=== PATIENT | male | born 1985 | race Hispanic/Latino ===

== ENCOUNTER 2016-11-09 17:21 | Emergency (ER) | payer MEDICAID ==
--- NOTE | 2016-11-09 18:44 | Emergency Department Report ---
Chief Complaint: Seizure Stated Complaint: MED REACTION Time Seen by Provider: 11/09/16 18:27 - HPI History of Present Illness: PT states he has a hx of sz. PT states his teacher called EMS because he has a sz today. PT states he was told he was dehydrated from drinking too much Coke or Water. pt denies ETOH - ROS Review of Systems: - cook + sz - Exam Vital Signs: Vital Signs 11/09/16 18:18 Temperature 98.7 F Pulse Rate 96 H Respiratory 18 Rate Blood Pressure 132/77 O2 Sat by Pulse 100 Oximetry Physical Exam: pt is alert and appropriate. pt is slow to respond to questions. no focal weakness noted MSE screening note: Focused history and physical exam performed. Due to findings the following was ordered: labs ED Disposition for MSE Condition: Stable
[2016-11-09 18:48] LABS: Basophils % (Auto) 0.3 % (0.0-1.8); Eosinophils % (Auto) 0.1 % (0.0-4.3); Hematocrit 42.1 % (35.5-45.6); Mean Corpuscular HGB Conc 33 % (32-34); Mean Corpuscular Hemoglobin 28 pg (28-32); Mean Corpuscular Volume 83 fl (84-94); Platelet Count 214 K/mm3 (140-440); Red Blood Count 5.08 M/mm3 (3.65-5.03); Red Cell Distribution Width 13.7 % (13.2-15.2)
[2016-11-09 18:54] LABS: Urine Drugs of Abuse Note Disclamer
[2016-11-09 19:06] LABS: Bilirubin,Urine NEG (Negative); Blood,Urine NEG (Negative); Ketones,Urine NEG (Negative); Leukocyte Esterase,Urine NEG (Negative); Nitrite,Urine NEG (Negative); RBC,Urine < 1.0 /HPF (0.0-6.0); WBC,Urine < 1.0 /HPF (0.0-6.0)
[2016-11-09 19:09] LABS: Magnesium 2.1 mg/dL (1.7-2.3)
[2016-11-09 20:20] LABS: Alanine Aminotransferase 8 units/L (7-56); Albumin 4.6 g/dL (3.9-5); Albumin/Globulin Ratio 1.2 %; Alkaline Phosphatase 57 units/L (35-129); Anion Gap 20 mmol/L; Blood Urea Nitrogen 9 mg/dL (9-20); Calcium 9.4 mg/dL (8.4-10.2); Carbon Dioxide 26 mmol/L (22-30); Chloride 101.2 mmol/L (98-107); Glucose 105 mg/dL (75-100); Potassium 4.2 mmol/L (3.6-5.0); Sodium 143 mmol/L (137-145); Total Protein 8.6 g/dL (6.3-8.2)
[2016-11-09 22:55] VITALS: BP 124/82
[2016-11-09] MEDS ORDERED: NACL 0.9% 1000 ML 1,000 ML IV ONE (23:37)
--- NOTE | 2016-11-09 23:40 | Emergency Department Report ---
HPI - General Chief Complaint: Seizure Time Seen by Provider: 11/09/16 18:27 - HPI HPI: This is a 30-year-old male who presents to the emergency department by EMS from his "class" with the complaint of a possible seizure. Patient says that his eyes rolled in the back of his head and he passed out. This was witnessed by other people in the class. This class is a daytime education and/ or treatment Center for psychiatric illness in the patient attends therefore his history of schizophrenia. He takes Geodon. The patient does have a history of seizures and takes Depakote and says he is compliant with this medication. His primary care doctor is a Dr. Little. He said the last time he had a seizure was about 2 months ago. Currently he feels improved. Unknown if he hit his head or the amount of time that he was unconscious. ED Past Medical Hx - Past Medical History Hx Seizures: Yes Hx Psychiatric Treatment: Yes (depression) - Surgical History Past Surgical History?: No - Social History Smoking Status: Never Smoker Substance Use Type: None - Medications Home Medications: Home Medications Medication Instructions Recorded Confirmed Last Taken Type Diphenhydramine HCl [Ormir] 50 mg PO BID #60 capsule 10/02/13 02/05/15 02/04/15 Rx Ziprasidone HCl [Geodon] 80 mg PO BID #60 capsule 10/02/13 02/05/15 02/04/15 Rx Divalproex Sodium [Divalproex 1,500 mg PO QHS 02/05/15 02/05/15 02/04/15 History Sodium ER] ED Review of Systems ROS: Stated complaint: MED REACTION Other details as noted in HPI Comment: All other systems reviewed and negative Constitutional: denies: chills, fever Eyes: denies: eye pain, eye discharge, vision change ENT: denies: ear pain, throat pain Respiratory: denies: cough, shortness of breath, wheezing Cardiovascular: denies: chest pain, palpitations Gastrointestinal: denies: abdominal pain, nausea, diarrhea Genitourinary: denies: urgency, dysuria Musculoskeletal: denies: back pain, joint swelling, arthralgia Skin: denies: rash, lesions Neurological: other (seizure). denies: headache Physical Exam - Physical Exam Vital Signs: Vital Signs 11/09/16 11/09/16 18:18 22:54 Temperature 98.7 F 98.9 F Pulse Rate 96 H 78 Respiratory 18 18 Rate Blood Pressure 132/77 Blood Pressure 124/82 [Right] O2 Sat by Pulse 100 97 Oximetry Physical Exam: GENERAL: The patient is well-developed well-nourished. HEENT: Normocephalic. Atraumatic. Extraocular motions are intact. Patient has moist mucous membranes. Pupils equal reactive to light bilaterally. No nystagmus. NECK: Supple. Trachea is midline. CHEST/LUNGS: Clear to auscultation. There is no respiratory distress noted. HEART/CARDIOVASCULAR: Regular. There is no tachycardia. There is no gallop rub or murmur. ABDOMEN: Abdomen is soft, nontender. Patient has normal bowel sounds. There is no abdominal distention. SKIN: Skin is warm and dry. NEURO: The patient is awake, alert, and oriented. The patient is cooperative. The patient has no focal neurologic deficits. The patient has normal speech. Cranial nerves II through XII grossly intact. No dysmetria. Normal gait. MUSCULOSKELETAL: There is no tenderness or deformity. There is no limitation range of motion. There is no evidence of acute injury. ED Course Vital Signs 11/09/16 11/09/16 18:18 22:54 Temperature 98.7 F 98.9 F Pulse Rate 96 H 78 Respiratory 18 18 Rate Blood Pressure 132/77 Blood Pressure 124/82 [Right] O2 Sat by Pulse 100 97 Oximetry ED Medical Decision Making - Lab Data Result diagrams: 11/09/16 18:36 11/09/16 18:36 - EKG Data -: EKG Interpreted by [facility] EKG shows normal: sinus rhythm, axis, intervals, QRS complexes, ST-T waves Rate: normal - EKG Data When compared to previous EKG there are: previous EKG unavailable Interpretation: normal EKG - Radiology Data Radiology results: report reviewed CT of the head does not show any acute process including no hemorrhage, mass, shift, diffuse edema or skull fracture. - Medical Decision Making 30-year-old male presents the emergency department after a syncopal episode versus seizure while at his psychiatric class. Since the patient has been in the emergency department he has been awake, alert and lucid. He has been in the emergency department for more multiple hours and reevaluated multiple times and there has been no further seizure-like activity or any episodes of passing out. CT of the head does not show any bleed, shift, ischemic changes or any acute process. EKG is normal without ischemia, dysrhythmia or ST elevation [place]. His labs are mostly unremarkable and do not show any etiology of his previous symptoms. For this reason the patient appears safe for discharge home at this time. He is basically therapeutic on his Depakote, just a few points below the normal range. He was given a referral for neurology and encouraged follow-up with his primary care physician. He will return to the ER for any worsening of symptoms or any acute distress. - Differential Diagnosis seizure, orthostatic hypotension, vasovagal, CVA Critical Care Time: No Critical care attestation.: If time is entered above; I have spent that time in minutes in the direct care of this critically ill patient, excluding procedure time. ED Disposition Clinical Impression: Seizure Disposition: DC-01 TO HOME OR SELFCARE Is pt being admited?: No Condition: Stable Instructions: Epilepsy (ED) Additional Instructions: Please follow-up with your primary care doctor in the next few days. I have given you a referral for a local neurologist, Dr. Pimentel, to follow up regarding your seizures. Continue taking her seizure medication. Return to the emergency department with any worsening of your symptoms or any acute distress. Referrals: PRIMARY CARE, [Primary Care Provider] - GRABIEL GIPSON MD [Staff Physician] - 3-5 Days Time of Disposition: 03:58
--- NOTE | 2016-11-10 02:03 | Cat Scan Report ---
FINAL REPORT PROCEDURE: CT HEAD/BRAIN WO CON TECHNIQUE: Computerized tomography of the head was performed without contrast material. HISTORY: Seizure COMPARISON: No prior studies are available for comparison. FINDINGS: Skull and scalp: Normal. Paranasal sinuses: Normal. Ventricles and subarachnoid spaces: Normal. Cerebrum: No evidence of hemorrhage, acute infarction or mass . Cerebellum and brainstem: No evidence of hemorrhage, acute infarction or mass. Vasculature: Normal. Comments: None. IMPRESSION: Normal Examination
== END 2016-11-10 04:47 | disposition home or self-care (01) ==
LOC: ED 17:21
DX: R56.9 Unspecified convulsions (principal); F32.9 Major depressive disorder, single episode, unspecified
CPT/HCPCS: 36415; 70450; 80053; 80164; 80307; 81001; 82550; 83735; 85025; 93005; 93010; 96360; 99284; G0480; J7030; 80320